=== PATIENT | female | born 1990 | race Caucasian/White ===

== ENCOUNTER → 2018-04-12 10:10 | Outpatient (CLI) | payer OTHER, SELFPAY ==
[2018-04-12 11:53] LABS: Absolute Lymphocyte Count 3.17 X10^3/ul (0.83-4.51); Absolute Neutrophil Count 3.8 X10^3/uL (2.0-7.7); Basophil# 0.04 X10^3/uL; Basophil% 0.5 % (0-1); Eosinophil# 0.23 X10^3/uL; Eosinophils% 2.9 % (0-5); Hematocrit 37.7 % (37-47); Hemoglobin 12.8 g/dl (12.0-15.0); Lymphocyte # 3.17 X10^3/ul (4.0); Lymphocyte % 39.7 % (19-41); Mean Corpuscular Hgb 30.2 pg (27.0-32.0); Mean Corpuscular Volume 88.9 fL (81-99); Mean Platelet Vol. 9.5 fl (6.2-12.0); Monocyte# 0.69 X10^3/uL; Monocyte% 8.6 % (0-10); Neutrophil # 3.84 X10^3/uL (2.7-7.7); Neutrophil % 48.2 % (47-70); Platelet Count 353 K/mm3 (150-450); RBC Distribution Width SD 41.5 fl (35.1-43.9); Red Blood Count 4.24 M/mm3 (4.2-5.4)
[2018-04-12 11:56] LABS: POSITIVE COUNT NO; POSITIVE DIFFERENTIAL NO; POSITIVE MORPHOLOGY NO
[2018-04-12 12:48] LABS: ALB/GLOB Ratio 1.2 RATIO (0.9-2.4); AST(SGOT) 14 U/L (15-37); Alanine Aminotransfer ALT/SGPT 26 U/L (13-56); Albumin, Serum 3.6 g/dL (3.2-5.0); Alkaline Phosphatase 84 U/L (45-117); Anion Gap 4 (5-15); BUN 10 mg/dL (7-18); BUN/Creat Ratio 16.7 RATIO (10-20); Chloride 108 mmol/L (98-107); EST Glomerular Filtration Rate 127 mL/min (>60); Est Glom Filt Rate - Afr Amer 154 mL/min (>60); Globulin 2.9 g/dL (2.2-4.2); Glucose 80 mg/dL (74-106); Potassium 3.7 mmol/L (3.5-5.1); Protein, Total 6.5 g/dL (6.4-8.2); Sodium Level 139 mmol/L (136-145); Thyroid Stim Hormone (TSH) 1.89 uIU/mL (0.358-3.74)
[2018-04-13 09:42] LABS: HEPATITIS B SURFACE AG Negative (Negative); Hep B Surface Antibodies Reactive (.); Hep C Antibodies <0.1 s/co ratio (0.0-0.9)
[2018-04-13 11:26] LABS: HIV - WCH Non-Reactive (Nonreactive)
[2018-04-13 14:35] LABS: HPV Reflexed? NOT INDICATED
[2018-04-15 01:20] LABS: Rapid Plasmin Reagin (RPR) NONREACTIVE (NONREACTIVE)
== END ==
PROVIDERS: Family Provider Family Medicine; PCP Family Medicine; Visit Provider Family Medicine
DX: Z01.419 Encounter for gynecological examination (general) (routine) without abnormal findings (principal)
CPT/HCPCS: 36415; 80053; 84443; 85025; 86592; 86703; 86706; 86803; 87340; 88175; G0145

== ENCOUNTER → 2018-11-29 10:24 | Outpatient (CLI) | payer OTHER, SELFPAY ==
[2018-11-29 12:35] LABS: Thyroid Stim Hormone (TSH) 1.21 uIU/mL (0.358-3.74)
== END ==
PROVIDERS: Family Provider Family Medicine; PCP Family Medicine; Visit Provider Family Medicine
DX: F32.9 Major depressive disorder, single episode, unspecified (principal)
CPT/HCPCS: 36415; 84443

== ENCOUNTER → 2019-01-06 13:29 | Outpatient (CLI) | payer OTHER, SELFPAY ==
--- NOTE | 2019-01-06 13:34 | BI_ITS ---
MAMMOGRAPHY - BILATERAL DIAGNOSTIC REASON FOR EXAM: Female, 28 years old. Bilateral breast lumps. PERTINENT HISTORY: Non-contributory. TECHNIQUE: Digital bilateral breast arelis (3D mammographic acquisition) in the CC and MLO projections. 2-D mediolateral oblique (MLO) and craniocaudad (CC) views of both breasts were obtained. CAD: Full Field Digital Mammography with Computer Added Detection was performed. COMPARISON: None. Baseline examination. FINDINGS: Breast Composition: The breasts are heterogeneously dense, which may obscure small masses. There are no dominant masses or suspicious calcifications. No other significant abnormalities are identified. BI/DIAG MAMM W/CAD, BILAT IMPRESSION: Negative diagnostic mammogram. With the patient's history of bilateral breast lumps, correlation with ultrasound of both breasts is recommended. ASSESSMENT CATEGORY: BIRADS Category 0: Incomplete. Need additional imaging evaluation. A letter regarding these results will be sent to the patient by the facility within 30 days. Approximately 10% of breast cancers are not detected by mammography. A normal mammogram should not delay biopsy of a clinically suspicious abnormality. Electronically Signed: Raj Kunz MD at 8:37 EST , Service support ,
--- NOTE | 2019-01-06 13:34 | US_ITS ---
STUDY: ULTRASOUND BREAST - RIGHT REASON FOR EXAM: Female, 28 years old. Palpable lump in the right breast. TECHNIQUE: Axial and longitudinal images of the RIGHT breast were performed with a high resolution ultrasound transducer. COMPARISON: Comparison is made with prior mammograms in earlier in the day. FINDINGS: RIGHT Breast: The upper medial aspect of the right breast was examined by ultrasound. No sonographic abnormality is seen. IMPRESSION: No sonographic abnormality is seen in the upper medial aspect of the breast. ASSESSMENT CATEGORY: BIRADS Category 1: Negative. A letter regarding these results will be sent to the patient by the facility within 30 days. Electronically Signed: Raj Kunz MD at 14:53 EST , Service support , STUDY: ULTRASOUND BREAST - LEFT REASON FOR EXAM: Female, 28 years old. Palpable lump left breast. TECHNIQUE: Axial and longitudinal images of the LEFT breast were performed with a high resolution ultrasound transducer. COMPARISON: Comparison is made with prior mammogram done earlier today. FINDINGS: LEFT Breast: The upper outer aspect of the left breast was examined by ultrasound. No sonographic abnormality is seen. US/Breast Limited Unilateral IMPRESSION: No sonographic abnormality is seen. ASSESSMENT CATEGORY: BIRADS Category 1: Negative. A letter regarding these results will be sent to the patient by the facility within 30 days. Electronically Signed: Raj Kunz MD at 14:53 EST , Service support ,
== END ==
LOC: OPBI 13:31
PROVIDERS: Family Provider Family Medicine; PCP Family Medicine; Referring Provider Family Medicine; Visit Provider Family Medicine
DX: N63.0 Unspecified lump in unspecified breast (principal)
CPT/HCPCS: 76642; 77062; 77063; 77066; G0279

== ENCOUNTER → 2019-08-22 15:09 | Outpatient (CLI) | payer OTHER, SELFPAY ==
[2019-08-22 17:53] LABS: Anion Gap 9 (5-15); BUN 7 mg/dL (7-18); BUN/Creat Ratio 9.3 RATIO (10-20); Calcium,Total 8.2 mg/dL (8.5-10.1); Chloride 108 mmol/L (98-107); Cholesterol 118 mg/dL (200); Creatinine, Serum 0.75 mg/dL (0.55-1.02); EST Glomerular Filtration Rate 97 mL/min (>60); Est Glom Filt Rate - Afr Amer 117 mL/min (>60); Glucose 84 mg/dL (74-106); High Density Lipoprotein 50 mg/dL; Potassium 3.9 mmol/L (3.5-5.1); Sodium Level 144 mmol/L (136-145); Triglycerides 58 mg/dL; Very Low Density Lipoprotein 12 mg/dL (5-40)
== END ==
PROVIDERS: Family Provider Family Medicine; PCP Family Medicine; Referring Provider Family Medicine; Visit Provider Nurse Practitioner Adult Health
DX: Z13.220 Encounter for screening for lipoid disorders (principal); Z13.1 Encounter for screening for diabetes mellitus
CPT/HCPCS: 36415; 80048; 80061

== ENCOUNTER 2023-09-27 07:45 | Inpatient (IN) | payer MEDICAID, SELFPAY ==
[2023-09-27] VITALS (18 sets, daily range): BP systolic 102–135; BP diastolic 51–81; PULSE 52–84; RESP 12–18; TEMP 36.3–37.1; O2SAT 95–100; BMI 28.2
[2023-09-27] MEDS: Lactated Ringers 1,000 ML 999 ML IV ×2 (08:03→17:55)
[2023-09-27] MEDS: Acetaminophen 500 MG Tablet 1000 MG PO ×3 (08:03→20:20)
[2023-09-27] MEDS: Sodium Citrate/Citric Acid 30 ML UDC PO (08:03)
[2023-09-27 08:27] LABS: Absolute Lymphocyte Count 1.22 X10^3/uL (0.83-4.51); Absolute Neutrophil Count 20.8 X10^3/uL (2.0-7.7); Basophil# 0.05 X10^3/uL; Basophil% 0.2 % (0-1); Eosinophil# 0.01 X10^3/uL; Hematocrit 35.5 % (37-47); Hemoglobin 11.4 g/dL (12.0-15.0); Lymphocyte # 1.22 X10^3/ul (0.83-4.51); Lymphocyte % 5.2 % (19-41); Mean Corp Hgb Conc 32.1 g/dL (32-36); Mean Corpuscular Hgb 27.3 pg (27.0-32.0); Mean Corpuscular Volume 85.1 fL (81-99); Mean Platelet Vol. 9.8 fl (6.2-12.0); Monocyte# 1.02 X10^3/uL; Monocyte% 4.4 % (0-10); NRBC Flagged by Analyzer 0 % (0-5); Neutrophil % 89.1 % (47-70); POSITIVE DIFFERENTIAL YES; Platelet Count 343 K/mm3 (150-450); RBC Distribution Width CV 13.8 % (11.6-14.6); RBC Distribution Width SD 42.5 fl (35.1-43.9); Red Blood Count 4.17 M/mm3 (4.2-5.4); White Blood Count 23.4 K/mm3 (4.4-11.0)
[2023-09-27 08:28] LABS: Differential Indicated SCAN CRITERIA MET
[2023-09-27 08:29] LABS: Mucous, Urine 0 SEEN /hpf (<or=2+)
[2023-09-27 08:34] LABS: Color, Urine Yellow (Yellow); Glucose, Dipstick Normal (Normal); Ketone-Dipstick Negative (Negative); Leukocyte Esterase-Dipstick 500 /ul (Negative); Nitrite-Dipstick Negative (Negative); Occult Blood-Urine 150 /ul (Negative); Protein-Dipstick 15 mg/dl (Negative); Urine Bilirubin Dipstick Negative (Negative); Urine Clarity Sl. Cloudy (Clear); Urine Urobilinogen Normal (Normal)
[2023-09-27 08:40] LABS: Bacteria 1+ /hpf (None Seen); Red Blood Cells-Urine 10-25 SEEN /hpf (0-5); Squamous Epithelial Cells - UA 0-5 SEEN /hpf (5-10); White Blood Cells 25-50 SEEN /hpf (0-5)
--- NOTE | 2023-09-27 08:42 | HP.PCM.OB_ITS ---
HPI - General General Date of Admission: 09/27/23 Date of Service: 09/27/23 HPI Narrative VAL LOMBARDI, is a 32 F who presents multigravida female with history of 1 previous section presents complaining contractions since yesterday. They got worse since she arrived to labor and delivery. She was found to be in active labor. She has had 1 visit in a couple of ultrasounds at the [facility]. She denies any drug or alcohol use during the . Patient states she just was not in a very good place so she did not get routine care. She was in denial for a while. She plans on placing the baby for adoption. Patient denies any major medical problems. Maternal Data Information Final EVELYNE: 10/12/23 Gestational age: 37 6/7 PFSH [facility] Medical History (Updated 09/27/23 @ 08:[address] Jany Hayward MD) Depression Allergy/AdvReac Type Severity Reaction Status Date / Time No Known Allergies Allergy Verified 09/27/23 07:55 Surgical History (Updated 09/27/23 @ 08:[address] Jany Hayward MD) History of surgery Social History Smoking Status: Current every day smoker History Elective abortions Hx Para 1 Spontaneous abortions Hx # Term Pregnancies Ectopic pregnancies Hx # Pregnancies Multiple births # of living children ROS Constitutional Constitutional: Denies fatigue, fever(s) or malaise Eyes Eyes: Denies change in vision ENT HEENT: Denies dizziness or headache(s) Cardiovascular Cardiovascular: Denies chest pain, dyspnea or lightheadedness Respiratory/Chest Respiratory/Chest: Denies cough or dyspnea Gastrointestinal Gastrointestinal: Denies change in bowel habits Genitourinary Genitourinary: Denies burning urination or genital lesions Integumentary Integumentary: Denies rash Neurologic Neurologic: Denies confusion, dizziness, headache(s), numbness or weakness Vital Signs Vital Signs Vital Signs: 09/27/23 08:13 Temperature 98.7 F Temperature Source Temporal Pulse Rate 71 Respiratory Rate 18 Blood Pressure 135/81 H Blood Pressure Mean 99 Blood Pressure Source Monitor Blood Pressure Position Semi-Fowlers Blood Pressure Location Left Arm Pulse Ox 100 Oxygen Delivery Method Room Air Weight Weight: 79.379 kg Body Mass Index (BMI) 28.2 Physical Exam Const alert and no apparent distress General Appearance: cooperative HEENT normocephalic Resp normal respiratory effort Cardio regular rate GI soft to palpation GI Narrative: gravid, nontender, appropriate for gestational age Extremity no calf tenderness General Extremity: edema Skin no wounds Rashes: No rashes noted Psych activity/motor behavior normal Labs Labs Labs: Blood Type Pending Antibody Screen Pending Hct 35.5 % (37-47) L Hgb 11.4 g/dL (12.0-15.0) L Syphilis Total Ab Pending Rubella IgG Antibody Pending Hep Bs Antigen Negative (Negative) Hepatitis C Antibody Pending Hepatitis C Ab (EIA) <0.1 s/co ratio (0.0-0.9) HIV 1&2 Antibody Non-Reactive (Nonreactive) Assessment & Plan (1) Limited care in third trimester: PLAN: 32-year-old multigravida female with history of 1 previous section presents in active labor. Desires repeat . Risk benefits and alternatives were reviewed, her questions were answered to her satisfaction she desires to proceed and consent was signed. Patient states she is contacted an adoption agency and plans to place the for adoption. She has not contacted them yet. panel drawn. Urine tox screen sent. Reviewed with her LARC options, will review again tomorrow. (2) 37 weeks gestation of : (3) Previous delivery affecting , antepartum:
[2023-09-27 08:44] LABS: Anion Gap 7 (5-15); BUN 4 mg/dL (7-18); BUN/Creat Ratio 8.3 RATIO (10-20); Calcium,Total 8.5 mg/dL (8.5-10.1); Chloride 104 mmol/L (98-107); Creatinine, Serum 0.48 mg/dL (0.55-1.02); EST Glomerular Filtration Rate 157 mL/min (>60); Est Glom Filt Rate - Afr Amer 190 mL/min (>60); Estimated Creatinine Clearance 157.52 ml/min; Glucose 89 mg/dL (74-106); Potassium 3.7 mmol/L (3.5-5.1); Sodium Level 135 mmol/L (136-145)
[2023-09-27] MEDS: Cefazolin 2 GM in 0.9% Normal Saline (100mL Bag) 100 ML IV (08:49)
[2023-09-27 09:06] LABS: Differential Comment SCANNED
[2023-09-27 09:14] LABS: Rubella IgG Reactive (Nonreactive)
[2023-09-27 09:23] LABS: Syphilis Antibodies Non-reactive
[2023-09-27 09:41] LABS: Amphetamine Urine VISTA NEGATIVE (<1000 ng/mL); Barbiturate Urine VISTA NEGATIVE (< 200 ng/mL); Benzodiazepine Urine VISTA NEGATIVE (< 200 ng/mL); Cocaine Urine VISTA NEGATIVE (< 300 ng/mL); Ecstacy Urine VISTA NEGATIVE (< 500 ng/mL); Methadone Urine VISTA NEGATIVE (< 300 ng/mL); PCP Urine VISTA NEGATIVE (< 25 ng/mL); THC Urine VISTA NEGATIVE (< 50 ng/mL); Vista UDS pH Range 7
[2023-09-27 09:42] LABS: HIV - WCH Non-Reactive (Nonreactive); Hepatitis B Surface Antigen Non-Reactive (Nonreactive); Hepatitis C Antibody Non-Reactive (Nonreactive)
--- NOTE | 2023-09-27 09:56 | OP.PCM_ITS ---
Assessment & Plan (1) delivery delivered: Maternal Data Information Final EVELYNE: 10[birth year]12/23 Gestational age: 37 6/7 Details Operative Information Date of Procedure: 09/27/23 Pre-Operative Diagnosis: labor, previous c/s Post-Operative Diagnosis: same Indications for : Repeat Elective Classification: CRISTINA Procedure Type: low transverse stripping and booking machine operator #1: Stalin Mendez stripping and booking machine operator #2: Moraima Morrison MS3 Type of Anesthesia: Spinal Anesthesiologist: Joon Lundberg Special Medications: duramorph Antibiotic Given: Ancef 2 grams IV x1 Drain: Moreno to straight drain Estimated Blood Loss: 800 Fluids Replaced: 850 Procedure Start Time: :13 Procedure Stop Time: :51 Time of Delivery: :17 Findings Description of Procedure: The patient was taken to the operating room. She was prepped and draped in the dorsal supine position with a leftward tilt. A Pfannenstiel skin incision was made approximately 2 cm above the symphysis pubis and carried through to underlying layer fascia with the scalpel. The fascia was incised incised in the midline and extended laterally with the Rosales scissors. The fascia was dissected off the rectus muscles with blunt and sharp dissection. The rectus muscles were in the midline and the peritoneum was entered [bluntly]. The peritoneal incision was stretched and the bladder blade was placed. The uterine incision was made in a low transverse fashion with the scalpel and extended superiorly and inferiorly with blunt dissection. [The amniotic membranes were ruptured bluntly and clear amniotic fluid returned]. The 's head was brought to the incision in the flexed position and delivered without difficulty. The shoulders did not initially deliver easily. Therefore a hand was placed in the uterus and I used the bandage scissors to extend the left uterine incision slightly. The remainder of the was delivered with gentle traction and fundal pressure in the standard fashion. The mouth and nares were bulb suctioned. The cord was clamped and cut as the infant was stimulated. The infant was handed off to the waiting nursing staff. The placenta was delivered with fundal massage and gentle traction in the standard fashion. The uterus was exteriorized and cleared of all clots and debris. The uterine incision was closed with #1 Vicryl in a running locked fashion. [A second layer of the same suture was used in an imbricating fashion to obtain hemostasis because there were some sinuses that were bleeding. Single [id number] suture was needed in the left corner to obtain hemostasis.] The incision was examined and was found to be hemostatic. Some Dustin was placed over the uterine incision. The uterus was placed back into the peritoneal cavity and hemostasis was again confirmed. The rectus muscles were examined and any bleeding was Bovie cauterized. [The parietal peritoneum and rectus muscles were closed en bloc with an 0 Vicryl running suture]. Some Dustin was placed over the rectus muscles. The rectus fascia was examined and any bleeding was Bovie cauterized and the rectus fascia was closed with [1 Vicryl] suture in a running standard fashion. The subcutaneous tissue was examining and any bleeding was Bovie cauterized. Some Dustin was placed in the subcutaneous tissue. [The subcutan eous tissue was reapproximated with 3-0 Vicryl suture.] The skin was closed in a subcuticular fashion with Monocryl suture.. I performed the entire procedure with assistance.. All sponge, lap, and needle counts were correct. The patient was taken to her room for recovery in a stable condition. Presentation: Positive for Vertex Amniotic Membrane Rupture Type: Artificial Amniotic Fluid Description: Clear Placental Delivery Description: Expressed Placenta Disposition: [facility] Cord Vessel Description: 3 Vessels Cord Entanglement: None Cord Gases: ABG and VBG A Gender: Male (1 minute): 8 (5 minute): 10 Delayed Cord Clamping: No Complications Complications: none
[2023-09-27] MEDS: Oxytocin 15 Units/NS 250ml 15 UNITS/250 ML IV.SOLN 83 UNITS IV (10:15)
[2023-09-27] MEDS: Ketorolac 30 MG/ML Syringe IV ×3 (10:39→23:19)
[2023-09-27] MEDS: Lactated Ringers 1,000 ML 100 ML IV ×2 (13:25→17:38)
--- NOTE | 2023-09-27 14:07 | CASEMGMT ---
Social Work Labor and Delivery Unit ? Summary:?Mother of baby (KERLINE Shukla) is 32 year old female who presented in labor after experiencing contractions. Prior to delivery MOB indicated that she is planning on adopting out baby. MOB delivered baby on 09/27/23, and has expressed desire not to see baby. Baby boy was born weighing 7lb 1oz and his apgars were 8 and 10 at one and five minutes of life, respectfully. - Sw presented to bedside and introduced self to [place]. MOB had two visitors with her, she reports that they are her mom and her sister. MOB stated that it was ok for sw to continue assessment with family present. - MOB stated that she and father of baby (FOJohn- Nato Hernández) have only been together for a year. MOB states that she and FOB have been homeless for the majority of their relationship, only finding and securing housing about three months ago. MOB stated that when she discovered that she was she wanted to have an , but LOVE did not want her to so she kept the . MOB states that LOVE is not someone she would ever want to have a child with. MOB states that she and FOB do not have a healthy relationship with one another. MOB denies physical violence, but reports that she and FOB do not always see eye to eye and they argue/ fight a lot. 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 MOB states that she had difficulty paying for her utilities in the past, but currently her utilities and other bills are paid. MOB denies any housing, food or transportation insecurities at this time. - MOB reports that she did not receive adequate care during because she was not in a good place. MOB states that she was in denial for a long time that she was , and then came to terms with an adoption. MOB states that she is connected to [employer] ([facility]) and she has not yet informed them that the baby has been born. - MOB states that she has another child, Melvi Shearer- who is 10 years old and resides with her dad. MOB states that she gets to see Melvi every weekend. MOB reports that LOVE has two other children who are 4 and 6 and he does not have custody of them. - MOB denies any substance use prior to or during . MOB states that she has used marijuana in the past- about 1.5 years ago. MOB did disclose that FOB does have a substance use history with methamphetamine and THC. MOB provided consent for sw to reach out to worker at [facility]. Summer Jc ([phone]). Sw called Summer and touched base- Summer plans to present to unit tomorrow (09/28) to bring family adoption profiles for MOB to review. ? Assessment:??MOB admitted to L&D following delivery of baby this morning. MOB has decided to follow through with adoption plan using [facility] adoption agency. ? Intervention:?Sw provided support and assessed for any other social needs or concerns at this time. ? Plan:??[facility] to present to bedside tomorrow to meet MOB and will assist in providing adoption profiles for MOB to review. Sw will continue to be available throughout admission to provide support and assist with the discharge plans for MOB and baby. ? No other services requested or indicated. Kate Potter, REGIONAL DRIVER, [employer]
[2023-09-27] MEDS: 0.9% Saline Lock 10 ML Syringe IV ×2 (16:19→23:20)
[2023-09-28] MEDS: Acetaminophen 500 MG Tablet 1000 MG PO ×4 (02:10→20:20)
[2023-09-28 04:30] VITALS: BP 132/70; PULSE 65; RESP 15; TEMP 36.1; O2SAT 97
[2023-09-28] MEDS: 0.9% Saline Lock 10 ML Syringe IV (04:47)
[2023-09-28] MEDS: Ketorolac 30 MG/ML Syringe IV (04:47)
[2023-09-28 05:02] LABS: Hematocrit 32.8 % (37-47); Hemoglobin 10.6 g/dL (12.0-15.0); Mean Corp Hgb Conc 32.3 g/dL (32-36); Mean Corpuscular Hgb 27.8 pg (27.0-32.0); Mean Corpuscular Volume 86.1 fL (81-99); Platelet Count 318 K/mm3 (150-450); RBC Distribution Width SD 43.4 fl (35.1-43.9); Red Blood Count 3.81 M/mm3 (4.2-5.4); White Blood Count 18.1 K/mm3 (4.4-11.0)
[2023-09-28 07:55] VITALS: BP 128/87; PULSE 70; RESP 16; TEMP 36.6
[2023-09-28] MEDS: Senna/Docusate Sodium 1 Tablet PO (08:25)
[2023-09-28] MEDS: Ibuprofen 600 MG Tablet PO ×3 (10:40→22:46)
--- NOTE | 2023-09-28 11:25 | PCM.PN.OB ---
Subjective Subjective Doing well per patient and nursing staff. Ambulating and taking PO without difficulty. Voiding and passing flatus. Pain controlled. , services for assistance. Denies headache, visual changes, chest pain, shortness of breath, leg pain or increased bleeding. Lochia normal. Coping well after delivery, planning for adoption of her son. Objective Data Objective Data Vital Signs: Vital Signs Temp Pulse Resp BP Pulse Ox O2 Del Method 97.8 F 70 16 128/87 H 97 Room Air 09/28/23 07:55 09/28/23 07:55 09/28/23 07:55 09/28/23 07:55 09/28/23 04:30 09/28/23 04:30 Oxygen Delivery Method Room Air Weight: 175 lb Body Mass Index (BMI) 28.2 Intake & Output: Intake and Output for Last 24 Hours 09/26/23 09/27/23 09/28/23 23:59 23:59 23:59 Intake Total 4630.00 / 4630.00 Output Total 1725 / 1725 200 / 200 Balance 2905.00 / 2905.00 -200 / -200 Lab / Micro Data 09/28/23 04:45 09/27/23 08:15 Labs: Laboratory Results - last 24 hr 09/28/23 04:45: WBC 18.1 H, RBC 3.81 L, Hgb 10.6 L, Hct 32.8 L, MCV 86.1, MCH 27.8, MCHC 32.3, RDW Std Deviation 43.4, RDW Coeff of Katherine 14.0, Plt Count 318, MPV 10.0 Micro: Microbiology 09/27/23 08:00 Genital vaginal Chlamydia trachomatis (PCR) - Final 09/27/23 08:00 Genital vaginal Neisseria gonorrhoeae (PCR) - Final ROS Constitutional Constitutional: Reports systems reviewed and no addt'l complaints, except as documented; Denies headache(s) Eyes Eyes: Denies acute decrease in peripheral vision, blurry vision or change in vision ENT HEENT: Reports systems reviewed and no addt'l complaints, except as documented Cardiovascular Cardiovascular: Denies chest pain or dizziness Respiratory/Chest Respiratory/Chest: Denies cough, dyspnea, dyspnea on exertion, shortness of breath at rest or shortness of breath with exertion Gastrointestinal Gastrointestinal: Denies abdominal pain, diarrhea, nausea or vomiting Genitourinary Genitourinary: Denies abdominal discomfort Musculoskeletal Musculoskeletal: Denies limited range of motion Integumentary Integumentary: Reports systems reviewed and no addt'l complaints, except as documented Neurologic Neurologic: Reports systems reviewed and no addt'l complaints, except as documented Psychiatric Psychiatric: Reports systems reviewed and no addt'l complaints, except as documented Endocrine Endocrinology: Reports systems reviewed and no addt'l complaints, except as documented Hematologic/Lymphatic Hematologic/Lymphatic: Reports systems reviewed and no addt'l complaints, except as documented Allergic/Immunologic Allergic/Immunologic: Reports systems reviewed and no addt'l complaints, except as documented Physical Exam Const alert and oriented x3 General Appearance: cooperative Orientation / Consciousness: awake, oriented to person, oriented to place and oriented to time Exam Limitations: no limitations HEENT normocephalic Head and Scalp: normal to inspection, normocephalic and atraumatic Face and Sinus: normal facial exam Eyes General Eye: normal appearance of both eyes Neck full ROM Chest Chest: symmetrical chest wall rise Resp normal respiratory effort and normal air movement Auscultation: clear to auscultation bilaterally Cardio regular rate, regular rhythm, S1 normal heart sound, S2 normal heart sound, no murmurs, no rub, no gallops and no clicks GI normal to inspection, nondistended, normoactive bowel sounds and non-tender GI Narrative: dressing dry and intact, fundus 2 below U appearance of the vagina normal Bladder / Kidney Exam: no CVA tenderness Back/Spine normal ROM Extremity normal to inspection and full ROM Skin no rashes or lesions noted Neuro oriented x3 and moves all extremities Sensorium / Orientation: awake, alert and oriented to person Motor Exam: clonus absent Assessment & Plan (1) delivery delivered: (2) Child given for adoption: PLAN: Plan 1) POD#1 Repeat LTCS 2) Pain management 3) I&O 4) Hgb stable 5) Adoption agency coming today to discuss plans for adoption and placement of child. Emotional support provided, coping well 6) D/C home today, follow up in office
--- NOTE | 2023-09-28 11:45 | PCM.DC.SUM ---
Providers Date of Admission: 09/27/23 Primary Care Physician: Dr. Pierre Raygoza MD Reason For Visit: MATERNITY Diagnosis Discharge Diagnosis (1) delivery delivered: Status: Acute Code(s): O82 - Encounter for delivery without indication (2) Child given for adoption: Status: Acute Plan 1) POD#1 Repeat LTCS 2) Pain management 3) I&O 4) Hgb stable 5) Adoption agency coming today to discuss plans for adoption and placement of child. Emotional support provided, coping well 6) D/C home today, follow up in office Hospital Course Summary of Care Provided Minutes Spent on Discharge: 15 Hospital Course: Limited care, presented in active labor at 37 weeks. LTCS, course uneventful. Weight / BMI Weight Weight: 175 lb Body Mass Index (BMI) 28.2 ABG / Lab / Microbiology Data 09/28/23 04:45 09/27/23 08:15 Laboratory: Laboratory Results - last 24 hr 09/28/23 04:45: WBC 18.1 H, RBC 3.81 L, Hgb 10.6 L, Hct 32.8 L, MCV 86.1, MCH 27.8, MCHC 32.3, RDW Std Deviation 43.4, RDW Coeff of Katherine 14.0, Plt Count 318, MPV 10.0 Microbiology: Microbiology 09/27/23 08:00 Genital vaginal Chlamydia trachomatis (PCR) - Final 09/27/23 08:00 Genital vaginal Neisseria gonorrhoeae (PCR) - Final Meaningful Use Info Meaningful Use Diagnoses (Choose all that apply): None applicable Discharge Plan Admission Admit Date/Time: 09/27/23 07:45 Attending Provider: Jany Hayward Primary Care Provider: Pierre Raygoza Discharge Orders/Prescriptions Referrals / Follow Up: Pierre Raygoza MD [Primary Care Provider] -
--- NOTE | 2023-09-28 11:46 | PCM.DC.SUM ---
Providers Date of Admission: 09/27/23 Primary Care Physician: Dr. Pierre Raygoza MD Reason For Visit: MATERNITY Diagnosis Discharge Diagnosis (1) delivery delivered: Status: Acute Code(s): O82 - Encounter for delivery without indication (2) Child given for adoption: Status: Acute Plan 1) POD#1 Repeat LTCS 2) Pain management 3) I&O 4) Hgb stable 5) Adoption agency coming today to discuss plans for adoption and placement of child. Emotional support provided, coping well 6) D/C home today, follow up in office Weight / BMI Weight Weight: 175 lb Body Mass Index (BMI) 28.2 ABG / Lab / Microbiology Data 09/28/23 04:45 09/27/23 08:15 Laboratory: Laboratory Results - last 24 hr 09/28/23 04:45: WBC 18.1 H, RBC 3.81 L, Hgb 10.6 L, Hct 32.8 L, MCV 86.1, MCH 27.8, MCHC 32.3, RDW Std Deviation 43.4, RDW Coeff of Katherine 14.0, Plt Count 318, MPV 10.0 Microbiology: Microbiology 09/27/23 08:00 Genital vaginal Chlamydia trachomatis (PCR) - Final 09/27/23 08:00 Genital vaginal Neisseria gonorrhoeae (PCR) - Final D/C Instructions Discharge Diet: No restrictions Discharge Activity: Return to Normal Activity, May Not Drive and May Shower May resume sexual activity in: 6 weeks Weight Bearing Status: Full weight bearing Lifting Restricted to (Lbs): 20 Call your doctor if your incision/area has: Continuous Slow Oozing, Sudden Increased Bleeding, Increased Pain/ Swelling, Increased Redness, Foul Smelling Discharge and Swelling at the incision site Call your doctor if you observe: Fever of 101 or Higher, Inability to urinate, Inability to have a bowel movement, Using more than 1 pad per hour, Shortness of breath, Chest pain, Increased palpitations (irregular heartbeat), Calf discomfort and Uncontrolled pain Remove Dressing in: 3 days Please Follow Up With: Jany Hayward MD When: 1 week for incision check and 6 week for PP visit Meaningful Use Info Meaningful Use Diagnoses (Choose all that apply): None applicable Discharge Plan Admission Admit Date/Time: 09/27/23 07:45 Primary Reason for Your Visit: Repeat section Attending Provider: Jany Hayward Primary Care Provider: Pierre Raygoza Discharge Orders/Prescriptions Referrals / Follow Up: Pierre Raygoza MD [Primary Care Provider] - Jany Hayward MD [Med Staff - Active Staff] - (1 week for incision check and 6 week for PP visit) Disposition Disposition (needs filled in before D/C Order can be placed): Home, Self Care
[2023-09-28 14:21] VITALS: BP 131/89; PULSE 72; RESP 14; TEMP 36.4
[2023-09-28] MEDS: oxyCODONE 5 MG Tablet PO ×2 (14:30→20:20)
[2023-09-28] MEDS: SimETHICONE 80 MG Chewable Tablet PO ×2 (14:31→20:20)
[2023-09-28 15:36] VITALS: BP 138/82; PULSE 65; RESP 16; TEMP 36.4; O2SAT 97
[2023-09-28 19:22] VITALS: BP 123/63; PULSE 72; RESP 16; TEMP 36.6; O2SAT 97
[2023-09-29] MEDS: Acetaminophen 500 MG Tablet 1000 MG PO ×3 (02:12→14:29)
[2023-09-29 02:33] VITALS: BP 143/64; PULSE 74; RESP 16; TEMP 36.3; O2SAT 97
[2023-09-29] MEDS: Ibuprofen 600 MG Tablet PO ×3 (05:10→17:00)
[2023-09-29 08:00] VITALS: BP 127/72; PULSE 52; RESP 16; TEMP 36.2; O2SAT 97
--- NOTE | 2023-09-29 08:34 | PCM.DC.SUM ---
Providers Date of Admission: 09/27/23 Primary Care Physician: Dr. Pierre Raygoza MD Reason For Visit: MATERNITY Diagnosis Discharge Diagnosis (1) delivery delivered: Status: Acute Code(s): O82 - Encounter for delivery without indication (2) Child given for adoption: Status: Acute Medications at Discharge Home Medications acetaminophen 500 mg tablet 1,000 mg (2 x 500 mg) PO Q6H #0 tabs 09/29/23 ibuprofen 600 mg tablet 600 mg PO Q6H #0 tabs 09/29/23 sennosides 8.6 mg-docusate sodium 50 mg tablet (Stool Softener-Stimulant Laxative) 1 - 2 tab PO DAILY #0 tabs 09/29/23 Hospital Course Operations section Procedures None Summary of Care Provided Minutes Spent on Discharge: 20 Hospital Course: Patient had repeat section. Hosptial course was uneventful. Physical Exam Narrative Dressing is dry and intact Const alert and no apparent distress General Appearance: cooperative and comfortable Exam Limitations: no limitations HEENT normocephalic Eyes General Eye: normal appearance of both eyes Neck full ROM General: normal visual inspection Chest Chest: symmetrical chest wall rise Resp normal respiratory effort and normal air movement Effort and Inspection: symmetric chest movement Auscultation: clear to auscultation bilaterally Cardio regular rate and regular rhythm GI normal to inspection, nondistended, normoactive bowel sounds Back/Spine normal ROM Extremity full ROM and no calf tenderness General Extremity: normal exam except as noted Skin no rashes or lesions noted Neuro CN's II-XII intact bilaterally Psych mental status grossly normal Weight / BMI Weight Weight: 175 lb Body Mass Index (BMI) 28.2 ABG / Lab / Microbiology Data 09/28/23 04:45 09/27/23 08:15 Microbiology: Microbiology 09/27/23 08:00 Genital vaginal Chlamydia trachomatis (PCR) - Final 09/27/23 08:00 Genital vaginal Neisseria gonorrhoeae (PCR) - Final D/C Instructions Discharge Diet: No restrictions May resume sexual activity in: 6 weeks Weight Bearing Status: Full weight bearing Lifting Restricted to (Lbs): 20 Lifting Restrictions: 20 lbs Call your doctor if your incision/area has: Continuous Slow Oozing, Sudden Increased Bleeding, Increased Pain/ Swelling, Increased Redness, Foul Smelling Discharge and Swelling at the incision site Call your doctor if you observe: Fever of 101 or Higher, Inability to urinate, Inability to have a bowel movement, Using more than 1 pad per hour, Shortness of breath, Chest pain, Increased palpitations (irregular heartbeat), Calf discomfort and Uncontrolled pain Remove Dressing in: 5 days Cleanse incision/area with: Soap & Water and Keep Dressing Clean & Dry Please Follow Up With: Jany Hayward MD When: 1 week for incision check and 6 week for PP visit Meaningful Use Info Meaningful Use Diagnoses (Choose all that apply): None applicable Discharge Plan Admission Admit Date/Time: 09/27/23 07:45 Primary Reason for Your Visit: Repeat section Attending Provider: Jany Hayward Primary Care Provider: Pierre Raygoza Discharge Orders/Prescriptions Prescriptions: New sennosides-docusate sodium [Stool Softener-Stimulant Laxat] 8.6-50 mg Tablet 1 - 2 tab PO DAILY Qty: 0 0RF acetaminophen 500 mg Tablet 1,000 mg PO Q6H Qty: 0 0RF ibuprofen 600 mg Tablet 600 mg PO Q6H Qty: 0 0RF Referrals / Follow Up: Pierre Raygoza MD [Primary Care Provider] - Jany Hayward MD [Med Staff - Active Staff] - (1 week for incision check and 6 week for PP visit) Disposition Disposition (needs filled in before D/C Order can be placed): Home, Self Care
[2023-09-29] MEDS: Senna/Docusate Sodium 1 Tablet PO (08:35)
--- NOTE | 2023-09-29 09:21 | CASEMGMT ---
Addendum entered by Kate Potter 09/29/23 09:48: 0930: Sherie from [facility] presented to bedside and met with MOB. Sherie states that she will need to touch base with Rachel (who parents have identified wanting to place baby with) and will need to complete a safety plan with Rachel and ensure that it is a safe place for baby to be discharged to. Sherie stated that she will need to go back to the office and will come back to complete safety plan with MOB. Sw updated bedside RN. Kate Potter, WHEEL FILLER, REGISTERED LAND SURVEYOR Original Note: Labor and Delivery Social Work 09/28/23: 1300: addiction social worker, Summer Jc from [facility]) presented to bedside and met with mother of baby (MOB- Gayla) and father of baby (FOB- Nato) to discuss their current options and plan moving forward with a potential adopting for their baby boy. FOJohn stated that at this time they have decided to allow his ex - Rachel (formerly Edgar) to adopt the baby. Ms. Jc explained that if Rachel proceeds with adopting the baby, MOB and FOB are able to place the baby with Rachel for up to 6 months while she goes through the adoption process. Ms. Jc explained that Rachel will need to work with an adoption agency who will complete a home study- which would include a back ground check and a financial responsibility through the court system. - Ms. Jc stated that if they continue to pursue an adoption there is still paperwork that LOVE will need to complete. Ms. Jc stated that although parents have identified a plan A, it would be troy for them to also consider a plan B just in case plan A falls through. Ms. Jc offered to look through parent profiles with parents. Parents were receptive to this idea. 1630: Ms. Jc finished meeting with parents, completed paperwork with FOJohn and reviewed adoptive family profiles with parents. This social psychologist touched base with Ms. Jc after her time with MOB and FOB. Ms. Jc stated that she has some concerns if the baby were to be discharged with MOB and FOB when medically ready. Ms. Jc stated that her concerns are that MOB still wishes to pursue an adoption plan, but FOB is not wanting to go that route because he does not trust the adoptive families because he does not know them. Ms. Jc explained that she did discuss other types of adoptions with parents including open adoptions where they would still be as involved with baby if he were to go with Rachel. 1700: This social psychologist called [facility] and spoke to hotline screener, Natalee Medina. Sw informed Natalee that at this time parents are considering having Rachel adopt baby, which means that baby would be discharged with either parents or [facility]. Sw explained that there are social concerns regarding this discharge plan: housing concerns of MOB and FOB, MOB and FOB do not have necessary baby supplies because their original plan was an adoption, FOB substance use history including methamphetamines and THC, financial barriers to care for baby and concern for bonding with baby due to MOB had original plan of adoption. Ava stated that sw also has concerns regarding baby being discharged with Rachel. Natalee stated that this referral will be screened in and a worker will present to hospital tomorrow morning to meet with parents. Ava stated that MOB has a discharge order in already, but she is willing to stay tonight to continue to work on discharge plan for baby. . Sw will continue to follow throughout hospitalization to ensure that approrpriate discharge plan is configured for baby, along with assistance provided by [facility]. Kate Potter, WHEEL FILLER, REGISTERED LAND SURVEYOR
--- NOTE | 2023-09-29 09:41 | CASEMGMT ---
Addendum entered by Kate Potter 09/29/23 16:35: 1630: Sw received update from assigned [facility] worker, Sherie, that she completed home visit with father of baby (POLO Dutton) and she confirmed that it is ok for baby to be discharged to parent's home. However at this time they do not have all necessary baby items needed for baby. Sherie talked to [employer] who will be able to provide parents with necessary items (safe sleep space and car seat) for baby, but not until 1000 tomorrow morning (09/30). Ava has spoke to Dr. Santoro and made her aware of this plan as she is working on coordinating circumcision with MOB. MOB expressing desire to be discharged, and states that it is ok for baby to remain at hospital until tomorrow. Sw will continue to assist with discharge planning as necessary. VIKAS Quigley, PLATFORM ATTENDANT Original Note: Labor and Delivery Social Work 0845: This social work program coordinator spoke to assigned gearcase assembler from [facility], Sherie. Sherie reports that she will be at hospital to meet with mother of baby (ITALIAChaz Gayla) at 0930. Ava stated that sw will be available to meet with Sherie before she meets with MOB, and also after to discuss discharge plan for baby. 0900: Sw presented to bedside and met with MOB. Sw informed MOB that sw made referral to [facility] due to concerns regarding baby potentially being discharged with MOB before getting adopted by Rachel. Sw explained that [facility] will be able to assist MOB with the process of having baby potentially getting placed/ adopted with Rachel if that is still what MOB and FOB are considering. MOB expressed understanding and stated that she appreciates the support and guidance because she is not sure what the process entails. MOB stated that FOB went home to get the basinet set up, but he wasn't able to so the baby still does not have a place to sleep or a car seat. Sw stated that depending on the plan that [facility] puts into place they may be able to assist with those needs. MOB expressed understanding. VIKAS Quigley, PLATFORM ATTENDANT
[2023-09-29 14:30] VITALS: BP 117/69; PULSE 69; RESP 18; TEMP 36.3; O2SAT 96
== END 2023-09-29 18:20 | disposition home or self-care (01) | DRG 788 ==
LOC: WP 07:49
PROVIDERS: Admitting Provider Obstetrics & Gynecology; PCP Family Medicine; Referring Provider Obstetrics & Gynecology; Visit Provider Obstetrics & Gynecology
DX: O34.211 Maternal care for low transverse scar from previous cesarean delivery (principal); F17.200 Nicotine dependence, unspecified, uncomplicated; O99.334 Smoking (tobacco) complicating childbirth; Z37.0 Single live birth; Z3A.37 37 weeks gestation of pregnancy
CPT/HCPCS: 59025; 59050; 80048; 80307; 81001; 85025; 85027; 86703; 86762; 86780; 86803; 86850; 86900; 86901; 87340; 87491; 87591; 99221; 99406; J7120; A4216; G0378